=== PATIENT | female | born 1960 | race Caucasian/White ===

== ENCOUNTER 2018-02-28 09:24 | Emergency (ER) | payer SELFPAY ==
[~2018-02-28] VITALS: Ht 160 cm; Wt 65.8 kg
[2018-02-28 09:39] VITALS: BP 133/72
--- NOTE | 2018-02-28 09:39 | NUR ---
PT WAS EVALUATED BY DR PERALES. PT WAS D/C TO HOME. D/C INSTRUCTIONS GIVEN TO THE PT.
== END 2018-02-28 09:42 | disposition home or self-care (01) ==
LOC: ER 09:24
DX: S01.512A Laceration without foreign body of oral cavity, initial encounter (principal); W01.198A Fall on same level from slipping, tripping and stumbling with subsequent striking against other object, initial encounter; Y93.89 Activity, other specified; Y92.89 Other specified places as the place of occurrence of the external cause; Y99.8 Other external cause status
CPT/HCPCS: A4663